=== PATIENT | female | born 1980 | race Hispanic/Latino ===

== ENCOUNTER 2018-12-31 11:25 | Emergency (ER) | payer SELFPAY ==
[2018-12-31 13:15] LABS: Basophils % 0.8 % (0-1.3); Hematocrit 35.4 % (36.0-45.0); MPV 8.8 fL (7.6-11.3); RBC Red Blood Cell Count 4.35 M/uL (3.86-4.86)
[2018-12-31 13:25] LABS: ALT/SGPT 36 U/L (12-78); AST/SGOT 18 U/L (15-37); Albumin 3.3 g/dL (3.4-5.0); Alkaline Phosphatase 59 U/L (45-117); BUN Blood Urea Nitrogen 11 mg/dL (7-18); Bicarbonate 27 mmol/L (21-32); Bilirubin Direct 0.1 mg/dL (0-0.2); Bilirubin Total 0.7 mg/dL (0.2-1.0); Glucose Level 89 mg/dL (74-106); Lipase 80 U/L (73-393); Potassium 4.1 mmol/L (3.5-5.1); Protein, Total 7.1 g/dL (6.4-8.2); Sodium Level 138 mmol/L (136-145)
[2018-12-31] MEDS ORDERED: KETOROLAC 30 MG/ML INJ ONE (13:41)
[2018-12-31] MEDS ORDERED: NA CHLORIDE 0.9% 1,000 ML ONE (13:41)
[2018-12-31 13:58] LABS: Urine Blood 2+ (NEG); Urine Glucose NEGATIVE (NEG); Urine Protein NEGATIVE (NEG); Urine pH 7.5 (5.0-7.0)
--- NOTE | 2018-12-31 14:30 | RAD REPORT ---
EXAM DESCRIPTION: CT - Abdomen Pelvis W Contrast - 12/31/2018 2:07 pm CLINICAL HISTORY: Abdominal pain COMPARISON: none. TECHNIQUE: Computed axial tomography of the abdomen pelvis was obtained. 100 cc Isovue-300 was admin istered intravenously. Oral contrast was not requested which limits evaluation of bowel and appendix. All CT scans are performed using dose optimization technique as appropriate and may include automated exposure control or mA/KV adjustment according to patient size. FINDINGS: Some of the images are degraded by respiratory motion artifact The liver, spleen, pancreas, adrenal and kidneys appear unremarkable. There is no evidence of diverticulitis. An abnormal appendix is not visualized Small umbilical hernia. Postsurgical changes involve stomach IMPRESSION: No acute abnormality is displayed.
--- NOTE | 2018-12-31 14:36 | EDPHYS ---
Physician Documentation [facility] Name: Kristy Allen Age: 38 yrs Sex: Female : 1980 Arrival Date: 12/31/2018 Time: 11:27 Bed 17 Private MD: ED Physician Samy Nugent HPI: 12/31 13:27 This 38 yrs old Female presents to ER via Ambulatory with complaints of kb Abdominal Pain. 13:27 The patient presents with abdominal pain in the right upper quadrant. Onset: The kb symptoms/episode began/occurred 3 day(s) ago. The symptoms do not radiate. Associated signs and symptoms: none. The symptoms are described as constant. Modifying factors: The symptoms are alleviated by nothing, the symptoms are aggravated by nothing. Severity of pain: At its worst the pain was moderate in the emergency department the pain is unchanged. The patient has not experienced similar symptoms in the past. The patient has not recently seen a physician. 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 - Social history:: Smoking status: Patient/guardian denies using tobacco. - Ebola Screening: : Patient denies travel to an Ebola-affected area in the 21 days before illness onset. ROS: 13:28 Constitutional: Negative for fever, chills, and weight loss, Neck: Negative for injury, kb pain, and swelling, Cardiovascular: Negative for chest pain, palpitations, and edema, Respiratory: Negative for shortness of breath, cough, wheezing, and pleuritic chest pain, Back: Negative for injury and pain, : Negative for injury, bleeding, discharge, and swelling, MS/Extremity: Negative for injury and deformity, Skin: Negative for injury, rash, and discoloration, Neuro: Negative for headache, weakness, numbness, tingling, and seizure. 13:28 Abdomen/GI: Positive for abdominal pain, Negative for nausea, vomiting, and diarrhea, constipation, abdominal cramps, abdominal distension, anorexia. Exam: 13:28 Constitutional: This is a well developed, well nourished patient who is awake, alert, kb and in no acute distress. Head/Face: Normocephalic, atraumatic. ENT: Nares patent. No nasal discharge, no septal abnormalities noted. Tympanic membranes are normal and external auditory canals are clear. Oropharynx with no redness, swelling, or masses, exudates, or evidence of obstruction, uvula midline. Mucous membranes moist. Neck: Trachea midline, no thyromegaly or masses palpated, and no cervical lymphadenopathy. Supple, full range of motion without nuchal rigidity, or vertebral point tenderness. No Meningismus. Chest/axilla: Normal chest wall appearance and motion. Nontender with no deformity. No lesions are appreciated. Cardiovascular: Regular rate and rhythm with a normal S1 and S2. No gallops, murmurs, or rubs. Normal PMI, no JVD. No pulse deficits. Respiratory: Lungs have equal breath sounds bilaterally, clear to auscultation and percussion. No rales, rhonchi or wheezes noted. No increased work of breathing, no retractions or nasal flaring. Back: No spinal tenderness. No costovertebral tenderness. Full range of motion. Skin: Warm, dry with normal turgor. Normal color with no rashes, no lesions, and no evidence of cellulitis. MS/ Extremity: Pulses equal, no cyanosis. Neurovascular intact. Full, normal range of motion. Neuro: Awake and alert, GCS 15, oriented to person, place, time, and situation. Cranial nerves II-XII grossly intact. Motor strength 5/5 in all extremities. Sensory grossly intact. Cerebellar exam normal. Normal gait. 13:28 Abdomen/GI: Inspection: abdomen appears normal, Bowel sounds: normal, in all quadrants, Palpation: soft, in all quadrants, moderate abdominal tenderness, in the right upper quadrant. Vital Signs: 12:02 BP 131 / 77; Pulse 70; Resp 18; Temp 97.6; Pulse Ox 100% on R/A; Weight 88.9 kg (R); aj1 Height 5 ft. 1 in. (154.94 cm); 14:36 BP 111 / 79; Pulse 67; Resp 14; Temp 97.9(O); Pulse Ox 99% on R/A; Pain 3/10; ch 12:02 Body Mass Index 37.03 (88.90 kg, 154.94 cm) aj1 MDM: 12:30 Patient medically screened. kb 13:29 Data reviewed: vital signs, nurses notes. Data interpreted: Pulse oximetry: on room air kb is 100 %. Interpretation: normal. Counseling: I had a detailed discussion with the patient and/or guardian regarding: the historical points, exam findings, and any diagnostic results supporting the discharge/admit diagnosis, lab results, radiology results, the need for outpatient follow up, a family practitioner, to return to the emergency department if symptoms worsen or persist or if there are any questions or concerns that arise at home. 12/31 12:39 Order name: Basic Metabolic Panel; Complete Time: 13:26 kb 12/31 12:39 Order name: CBC with Diff; Complete Time: 13:26 kb 12/31 12:39 Order name: Hepatic Function; Complete Time: 13:26 kb 12/31 12:39 Order name: Lipase; Complete Time: 13:26 kb 12/31 13:17 Order name: Urine Dipstick--Ancillary (enter results); Complete Time: 14:01 bd 12/31 13:17 Order name: Urine --Ancillary (enter results); Complete Time: 14:01 bd 12/31 12:39 Order name: IV Saline Lock; Complete Time: 13:46 kb 12/31 12:39 Order name: Labs collected and sent; Complete Time: 13:46 kb 12/31 13:13 Order name: US Abdomen Limited kb 12/31 13:39 Order name: CT Abd/Pelvis - IV Contrast Only; Complete Time: 14:33 kb Administered Medications: 13:45 Drug: NS 0.9% 1000 ml Route: IV; Rate: 1000 ml; Site: right antecubital; jl7 14:56 Follow up: IV Status: Completed infusion; IV Intake: 800ml ch 13:45 Drug: TORadol - Ketorolac 15 mg Route: IVP; Site: right antecubital; jl7 14:56 Follow up: Response: No adverse reaction; Pain is decreased ch Disposition: 16:20 Co-signature as Attending Physician, Saym Nugent MD I agree with the assessment and kdr plan of care. Disposition: 12/31/18 14:35 Discharged to Home. Impression: Upper abdominal pain, unspecified. - Condition is Stable. - Discharge Instructions: Abdominal Pain, Adult, [id number]. - Prescriptions for Bentyl 20 mg Oral Tablet - take 1 tablet by ORAL route every 6 hours As needed; 20 tablet. - Medication Reconciliation Form, Thank You Letter, Antibiotic Education, Prescription Opioid Use, Work release form form. - Follow up: Emergency Department; When: As needed; Reason: Worsening of condition. Follow up: Private Physician; When: 2 - 3 days; Reason: Recheck today's complaints, Continuance of care, Re-evaluation by your physician. Signatures: Dispatcher [employer] EDMS Xiao Connell, OPERATING ROOM RN-C OPERATING ROOM RN-CkAna Suggs, RN RN ch Norma Russell RN RN aj1 Samy Nugent MD MD [facility] Torrie House RN RN jl7 Corrections: (The following items were deleted from the chart) 14:57 14:35 12/31/2018 14:35 Discharged to Home. Impression: Upper abdominal pain, ch unspecified. Condition is Stable. Forms are Medication Reconciliation Form, Thank You Letter, Antibiotic Education, Prescription Opioid Use. Follow up: Emergency Department; When: As needed; Reason: Worsening of condition. Follow up: Private Physician; When: 2 - 3 days; Reason: Recheck today's complaints, Continuance of care, Re-evaluation by your physician. kb
--- NOTE | 2018-12-31 14:36 | ER ---
Nurse's Notes [facility] Name: Kristy Allen Age: 38 yrs Sex: Female : 1980 Arrival Date: 12/31/2018 Time: 11:27 Bed 17 Private MD: Diagnosis: Upper abdominal pain, unspecified Presentation: 12/31 12:00 Presenting complaint: Patient states: RUQ abdominal pain for the past 3 days. Denies aj1 N/V/D. Denies fever. Transition of care: patient was not received from another setting of care. Onset of symptoms was December 31, 2018. Risk Assessment: Do you want to hurt yourself or someone else? Patient reports no desire to harm self or others. Initial Sepsis Screen: Does the patient meet any 2 criteria? No. Patient's initial sepsis screen is negative. Does the patient have a suspected source of infection? Yes: Acute abdominal pain. Care prior to arrival: None. 12:00 Method Of Arrival: Ambulatory aj1 12:00 Acuity: JOSEP 3 aj1 Triage Assessment: 12:02 General: Appears in no apparent distress. uncomfortable, Behavior is calm, cooperative, aj1 appropriate for age. Pain: Complains of pain in right upper quadrant and right lower quadrant Pain currently is 8 out of 10 on a pain scale. Neuro: Level of Consciousness is awake, alert, obeys commands, Oriented to person, place, time, situation. Cardiovascular: Patient's skin is warm and dry. Respiratory: Airway is patent Respiratory effort is even, unlabored, Respiratory pattern is regular, symmetrical. GI: Reports lower abdominal pain, upper abdominal pain. 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 - Social history:: Smoking status: Patient/guardian denies using tobacco. - Ebola Screening: : Patient denies travel to an Ebola-affected area in the 21 days before illness onset. Screenin:04 Abuse screen: Denies threats or abuse. Denies injuries from another. Nutritional ch screening: No deficits noted. Tuberculosis screening: No symptoms or risk factors identified. Fall Risk None identified. Assessment: 13:04 Reassessment: Patient appears in no apparent distress at this time. General: Appears in no apparent distress. uncomfortable, Behavior is calm, cooperative, appropriate for age. Pain: Complains of pain in abdomen Pain currently is 6 out of 10 on a pain scale. Respiratory: No deficits noted. 14:00 GI: Bowel sounds present X 4 quads. Abd is soft X 4 quads Abdomen is tender to ch palpation in right upper quadrant and left upper quadrant. 14:36 Reassessment: Patient appears in no apparent distress at this time. Patient and/or ch family updated on plan of care and expected duration. Pain level reassessed. Patient is alert, oriented x 3, equal unlabored respirations, skin warm/dry/pink. Patient states feeling better. Patient states symptoms have improved. Vital Signs: 12:02 BP 131 / 77; Pulse 70; Resp 18; Temp 97.6; Pulse Ox 100% on R/A; Weight 88.9 kg (R); aj1 Height 5 ft. 1 in. (154.94 cm); 14:36 BP 111 / 79; Pulse 67; Resp 14; Temp 97.9(O); Pulse Ox 99% on R/A; Pain 3/10; ch 12:02 Body Mass Index 37.03 (88.90 kg, 154.94 cm) aj1 ED Course: 11:27 Patient arrived in ED. rg4 12:01 Triage completed. aj1 12:02 Arm band placed on Patient placed in waiting room, Patient notified of wait time. aj1 12:30 Xiao Connell FNP-C is PHCP. kb 12:30 Samy Nugent MD is Attending Physician. kb 12:39 Ana Landrum, ELVER is Primary Nurse. ch 13:04 Patient has correct armband on for positive identification. Bed in low position. Call light in reach. Side rails up X 1. Adult w/ patient. Warm blanket given. 13:04 Inserted saline lock: 20 gauge in right antecubital area, using aseptic technique. Blood collected. 13:59 US Abdomen Limited In Process Unspecified. EDMS 14:08 CT Abd/Pelvis - IV Contrast Only In Process Unspecified. EDMS 14:36 No apparent distress. Resting quietly. ch 14:36 Pulse ox on. NIBP on. ch 14:36 No provider procedures requiring assistance completed. IV discontinued, intact, ch bleeding controlled, No redness/swelling at site. Pressure dressing applied. Administered Medications: 13:45 Drug: NS 0.9% 1000 ml Route: IV; Rate: 1000 ml; Site: right antecubital; jl7 14:56 Follow up: IV Status: Completed infusion; IV Intake: 800ml 13:45 Drug: TORadol - Ketorolac 15 mg Route: IVP; Site: right antecubital; jl7 14:56 Follow up: Response: No adverse reaction; Pain is decreased ch Intake: 14:56 IV: 800ml; Total: 800ml. Outcome: 14:35 Discharge ordered by . kb 14:55 Discharged to home ambulatory, with family. 14:55 Condition: stable 14:55 Discharge instructions given to patient, family, Instructed on discharge instructions, follow up and referral plans. medication usage, Demonstrated understanding of instructions, follow-up care, medications, Prescriptions given X 1. 14:57 Patient left the ED. Signatures: Dispatcher [employer] EDMS Xiao Connell, NIBBLER OPERATOR-C NIBBLER OPERATOR-Ana Quinones RN RN Norma Mckeon RN RN [email or web address] Joseline Shearer Jahala, RN RN jl7
--- NOTE | 2018-12-31 14:55 | RAD REPORT ---
EXAM DESCRIPTION: US - Abdomen Exam Limited - 12/31/2018 1:58 pm CLINICAL HISTORY: Abdominal pain. COMPARISON: None. FINDINGS: The gallbladder wall is not thickened. A gallstone is not seen. The biliary tree is normal caliber. IMPRESSION: Unremarkable gallbladder ultrasound.
[2018-12-31 15:13] VITALS: BP 111/79; TEMP 97.9; O2SAT 99
== END 2018-12-31 14:57 | disposition home or self-care (01) ==
LOC: ER 11:25
DX: R10.11 Right upper quadrant pain (principal); I10 Essential (primary) hypertension
CPT/HCPCS: 36415; 74177; 76705; 80048; 80076; 81003; 81025; 83690; 85025; 96361; 96374; 99284; J7030; Q9967